=== PATIENT | male | born 1995 | race Two or more races ===

== ENCOUNTER 2019-11-08 18:53 | Emergency (ER) | payer OTHER ==
[~2019-11-08] VITALS: Ht 165.1 cm; Wt 72.6 kg
[2019-11-08 18:58] VITALS: BP 139/98
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
--- NOTE | 2019-11-08 19:37 | NUR ---
Patient discharged to home in stable condition. Written and verbal after care instructions given. Patient verbalizes understanding of instruction. Pt medically cleared. Pt ambulated with steady gait. In custody.
== END 2019-11-08 19:39 ==
LOC: ER 19:00
DX: S60.221A Contusion of right hand, initial encounter (principal); X58.XXXA Exposure to other specified factors, initial encounter; Y93.89 Activity, other specified; Y92.89 Other specified places as the place of occurrence of the external cause; Y99.8 Other external cause status
CPT/HCPCS: 73130-TC